=== PATIENT | female | born 1950 | race Caucasian/White ===

== ENCOUNTER → 2018-05-05 | Outpatient (CLI) | payer MEDICARE, BC ==
--- NOTE | 2018-05-05 14:02 | US ---
EXAMINATION TYPE: US venous doppler duplex LE LT DATE OF EXAM: 05/05/2018 1:47 PM COMPARISON: NONE CLINICAL HISTORY: M79.662,R22.42 PAIN AND SWELLING IN LT LOWER LIMB. SIDE PERFORMED: Left TECHNIQUE: The lower extremity deep venous system is examined utilizing real time linear array sonog shree with graded compression, doppler sonography and color-flow sonography. VESSELS IMAGED: External Iliac Vein (EIV) Common Femoral Vein Deep Femoral Vein Greater Saphenous Vein * Femoral Vein Popliteal Vein Proximal Calf Veins (* superficial vessels) Left Leg: Negative for DVT Complex fluid collection originating behind knee and extending into mid calf, measures 9.7 x 1.8 cm. IMPRESSION: 1. No evidence for DVT. 2. Complex Mcdowell's cyst.
== END | disposition home or self-care (01) ==
LOC: RADUSWWP 13:23
PROVIDERS: ATTEND Family Medicine
DX: M79.662 Pain in left lower leg (principal); R22.42 Localized swelling, mass and lump, left lower limb

== ENCOUNTER 2021-10-14 02:32 | Inpatient (IN) | payer MEDICARE, BC ==
[2021-10-14] MEDS ORDERED: ENALAPRILAT 1.25 MG/ML 1 ML VIAL IVP STA ×2 (02:47→04:12)
[2021-10-14] MEDS ORDERED: IPRATROPIUM-ALBUTEROL 3 ML NEB INHALATION STA (02:47)
--- NOTE | 2021-10-14 02:57 | ED ---
SOB HPI - General Chief Complaint: Shortness of Breath Stated Complaint: SOB Time Seen by Provider: 10/14/21 02:47 Source: patient, EMS, RN notes reviewed, old records reviewed Mode of arrival: EMS Limitations: no limitations - History of Present Illness Initial Comments: This is a 71-year-old female who does have history of heart disease history of prior heart attack coming in for severe shortness of breath that woke her from sleep severe sudden onset of shortness of breath and asthma. No travel history or sick contacts no fevers no chest pain. Just severe shortness of breath patient can take a deep breath MD Complaint: shortness of breath, "asthma attack", anxiety -: minutes(s) Severity: severe Severity scale (1-10): 9 Consistency: constant Worsens With: nothing Known History Of: asthma Associated Symptoms: cough, sputum production Treatments Prior to Arrival: oxygen Review of Systems ROS Statement: Those systems with pertinent positive or pertinent negative responses have been documented in the HPI. ROS Other: All systems not noted in ROS Statement are negative. Past Medical History History of Any Multi-Drug Resistant Organisms: None Reported Past Psychological History: No Psychological Hx Reported Smoking Status: Never smoker Past Alcohol Use History: None Reported Past Drug Use History: None Reported General Exam Limitations: no limitations General appearance: anxious, in distress Head exam: Present: atraumatic, normocephalic, normal inspection Eye exam: Present: normal appearance, PERRL, EOMI. Absent: scleral icterus, conjunctival injection, periorbital swelling ENT exam: Present: normal exam, mucous membranes moist Neck exam: Present: normal inspection. Absent: tenderness, meningismus, lymphadenopathy Respiratory exam: Present: respiratory distress, wheezes, rhonchi, accessory muscle use, decreased breath sounds, prolonged expiratory. Absent: rales, stridor Cardiovascular Exam: Present: regular rate, normal rhythm, normal heart sounds. Absent: systolic murmur, diastolic murmur, rubs, gallop, clicks GI/Abdominal exam: Present: soft, normal bowel sounds. Absent: distended, tenderness, guarding, rebound, rigid Extremities exam: Present: normal inspection, full ROM, normal capillary refill. Absent: tenderness, pedal edema, joint swelling, calf tenderness Back exam: Present: normal inspection Neurological exam: Present: alert, oriented X3, CN II-XII intact Psychiatric exam: Present: normal affect, normal mood Skin exam: Present: warm, dry, intact, normal color. Absent: rash Course Vital Signs 10/14/21 10/14/21 10/14/21 02:36 03:02 03:08 Temperature 98.4 F Pulse Rate 95 89 87 Respiratory 16 Rate Blood Pressure 195/116 187/78 O2 Sat by Pulse 97 99 Oximetry 10/14/21 10/14/21 03:10 03:30 Temperature Pulse Rate 84 84 Respiratory Rate Blood Pressure 175/80 O2 Sat by Pulse Oximetry - Reevaluation(s) Reevaluation #1: 10/14/21 04:13 Medical record is reviewed Reevaluation #2: 10/14/21 04:13 Patient has no real improvement with. Treatments, continues to shortness of breath here in the ER Reevaluation #3: 10/14/21 04:13 Patient informed of results and questions answered - Consultations Consultation #1: Spoke with Dr. Recinos who agrees to admit this patient Medical Decision Making - Medical Decision Making 71 female with acute sudden onset of hypertensive emergency CHF flash pulmonary edema. This is new onset CHF. Patient will be admitted for cardiology evaluation management diuresis and monitoring of breathing, supportive care - Lab Data Result diagrams: 10/14/21 02:50 10/14/21 02:50 Lab Results 10/14/21 10/14/21 10/14/21 Range/Units 02:50 02:50 02:50 WBC 6.2 (3.8-10.6) k/uL RBC 3.86 (3.80-5.40) m/uL Hgb 12.0 (11.4-16.0) gm/dL Hct 34.7 (34.0-46.0) % MCV 90.0 (80.0-100.0) fL MCH 31.1 (25.0-35.0) pg MCHC 34.6 (31.0-37.0) g/dL RDW 13.7 (11.5-15.5) % Plt Count 289 (150-450) k/uL MPV 7.4 Neutrophils % 78 % Lymphocytes % 12 % Monocytes % 6 % Eosinophils % 3 % Basophils % 1 % Neutrophils # 4.8 (1.3-7.7) k/uL Lymphocytes # 0.7 L (1.0-4.8) k/uL Monocytes # 0.4 (0-1.0) k/uL Eosinophils # 0.2 (0-0.7) k/uL Basophils # 0.0 (0-0.2) k/uL PT 9.8 (9.0-12.0) sec INR 0.9 (<1.2) APTT 24.7 (22.0-30.0) sec Sodium 130 L (137-145) mmol/L Potassium 4.0 (3.5-5.1) mmol/L Chloride 97 L (98-107) mmol/L Carbon Dioxide 28 (22-30) mmol/L Anion Gap 5 mmol/L BUN 16 (7-17) mg/dL Creatinine 0.70 (0.52-1.04) mg/dL Est GFR (CKD-EPI)AfAm >90 (>60 ml/min/1.73 sqM) Est GFR (CKD-EPI)NonAf 89 (>60 ml/min/1.73 sqM) Glucose 201 H (74-99) mg/dL Plasma Lactic Acid Kvng (0.7-2.0) mmol/L Calcium 9.2 (8.4-10.2) mg/dL Magnesium 1.9 (1.6-2.3) mg/dL Total Bilirubin 0.5 (0.2-1.3) mg/dL AST 39 H (14-36) U/L ALT 23 (4-34) U/L Alkaline Phosphatase 78 (38-126) U/L Troponin I (0.000-0.034) ng/mL NT-Pro-B Natriuret Pep pg/mL Total Protein 7.0 (6.3-8.2) g/dL Albumin 4.1 (3.5-5.0) g/dL 10/14/21 10/14/21 10/14/21 Range/Units 02:50 02:50 03:03 WBC (3.8-10.6) k/uL RBC (3.80-5.40) m/uL Hgb (11.4-16.0) gm/dL Hct (34.0-46.0) % MCV (80.0-100.0) fL MCH (25.0-35.0) pg MCHC (31.0-37.0) g/dL RDW (11.5-15.5) % Plt Count (150-450) k/uL MPV Neutrophils % % Lymphocytes % % Monocytes % % Eosinophils % % Basophils % % Neutrophils # (1.3-7.7) k/uL Lymphocytes # (1.0-4.8) k/uL Monocytes # (0-1.0) k/uL Eosinophils # (0-0.7) k/uL Basophils # (0-0.2) k/uL PT (9.0-12.0) sec INR (<1.2) APTT (22.0-30.0) sec Sodium (137-145) mmol/L Potassium (3.5-5.1) mmol/L Chloride (98-107) mmol/L Carbon Dioxide (22-30) mmol/L Anion Gap mmol/L BUN (7-17) mg/dL Creatinine (0.52-1.04) mg/dL Est GFR (CKD-EPI)AfAm (>60 ml/min/1.73 sqM) Est GFR (CKD-EPI)NonAf (>60 ml/min/1.73 sqM) Glucose (74-99) mg/dL Plasma Lactic Acid Kvng 0.7 (0.7-2.0) mmol/L Calcium (8.4-10.2) mg/dL Magnesium (1.6-2.3) mg/dL Total Bilirubin (0.2-1.3) mg/dL AST (14-36) U/L ALT (4-34) U/L Alkaline Phosphatase (38-126) U/L Troponin I <0.012 (0.000-0.034) ng/mL NT-Pro-B Natriuret Pep 436 pg/mL Total Protein (6.3-8.2) g/dL Albumin (3.5-5.0) g/dL - EKG Data -: EKG Interpreted by Me (EKG is sinus rhythm 85 NM 197 QRS 94 QTC 399) - Radiology Data Radiology results: report reviewed (Chest x-ray positive for significant pulmonary edema), image reviewed Critical Care Time Critical Care Time: Yes Total Critical Care Time: 31 Disposition Clinical Impression: Congestive heart failure, Acute pulmonary edema, Asthma with acute exacerbation, Hypertensive emergency Disposition: ADMITTED IP TO THIS HOSP Condition: Serious Is patient prescribed a controlled substance at d/c from ED?: No Referrals: Cesia Recinos DO [Primary Care Provider] - 1-2 days Time of Disposition: 04:00
[2021-10-14 03:04] LABS: Basophils % (A) 1 %; Eosinophils # (A) 0.2 k/uL (0-0.7); Eosinophils % (A) 3 %; HCT 34.7 % (34.0-46.0); Lymphocytes # (A) 0.7 k/uL (1.0-4.8); Lymphocytes % (A) 12 %; MCH 31.1 pg (25.0-35.0); MCHC 34.6 g/dL (31.0-37.0); Mean Platelet Volume 7.4; Monocytes # (A) 0.4 k/uL (0-1.0); Monocytes % (A) 6 %; Neutrophils # (A) 4.8 k/uL (1.3-7.7); Neutrophils % (A) 78 %; Platelet Count 289 k/uL (150-450); RBC 3.86 m/uL (3.80-5.40); RDW 13.7 % (11.5-15.5); WBC 6.2 k/uL (3.8-10.6)
[2021-10-14 03:14] LABS: INR 0.9 (<1.2); Partial Thromboplastin Time 24.7 sec (22.0-30.0); Prothrombin Time 9.8 sec (9.0-12.0)
[2021-10-14 03:18] LABS: ALT 23 U/L (4-34); AST 39 U/L (14-36); African American GFR (CKD) >90 (>60 ml/min/1.73 sqM); Albumin 4.1 g/dL (3.5-5.0); Alkaline Phosphatase 78 U/L (38-126); Anion Gap 5 mmol/L; Blood Urea Nitrogen 16 mg/dL (7-17); Calcium 9.2 mg/dL (8.4-10.2); Carbon Dioxide 28 mmol/L (22-30); Chloride 97 mmol/L (98-107); Glucose 201 mg/dL (74-99); Magnesium 1.9 mg/dL (1.6-2.3); Non-African American GFR(CKD) 89 (>60 ml/min/1.73 sqM); Sodium 130 mmol/L (137-145); Total Bilirubin 0.5 mg/dL (0.2-1.3)
--- NOTE | 2021-10-14 03:40 | XR ---
EXAM: XR Chest, 1 View CLINICAL HISTORY: ITS.REASON XR Reason: sob TECHNIQUE: Frontal view of the chest. COMPARISON: No relevant prior studies available. FINDINGS: Lungs: Mild interstitial opacities in both lungs with questionable Kyle B-lines. Pleural space: Unremarkable. No pneumothorax. Heart: Unremarkable. No cardiomegaly. Mediastinum: Unremarkable. Bones/joints: Unremarkable. IMPRESSION: Mild pulmonary edema.
[2021-10-14] MEDS ORDERED: FUROSEMIDE 10 MG/ML 10 ML VIAL IV STA (03:45)
[2021-10-14] MEDS ORDERED: ALBUTEROL NEBULIZED 2.5 MG/3 ML INHALATION PRN (04:09)
[2021-10-14] MEDS ORDERED: NITROGLYCERIN OINT 1 INCH/GM PACKET TOPICAL STA (04:12)
[2021-10-14] MEDS: FUROSEMIDE 10 MG/ML 4 ML VIAL IV SCH ×2 (05:42→16:53)
[2021-10-14 07:49] LABS: Glucose,Whole Blood 253 mg/dL (70-110)
[2021-10-14] MEDS: LEVOTHYROXINE 100 MCG TAB PO SCH (09:10)
[2021-10-14] MEDS: carvediloL 12.5 MG TAB PO SCH ×2 (09:10→16:53)
[2021-10-14 09:19] LABS: Glucose,Whole Blood 274 mg/dL (70-110)
--- NOTE | 2021-10-14 10:43 | CA ---
Transthoracic Echo Report Name: Elle Huertas Age: 71 Gender: F : 1950 Exam Date: 10/14/2021 09:17 Exam Location: [facility] Ht (in): 64 Wt (lb): 200 Ordering Physician: Pastor Saleh DO Attending/Referring Phys: [id number], Delfino Boiler Assistant Operator Carol Simmons, BEBETO Procedure CPT: Indications: Heart failure Cardiac Hx: Technical Quality: Fair Contrast 1: Total Dose (mL): Contrast 2: Total Dose (mL): MEASUREMENTS (Male / Female) Normal Values 2D ECHO LV Diastolic Diameter PLAX 3.7 cm 4.2 - 5.9 / 3.9 - 5.3 cm LV Systolic Diameter PLAX 2.8 cm IVS Diastolic Thickness 1.1 cm 0.6 - 1.0 / 0.6 - 0.9 cm LVPW Diastolic Thickness 1.2 cm 0.6 - 1.0 / 0.6 - 0.9 cm LV Relative Wall Thickness 0.6 RV Internal Dim ED PLAX 2.7 cm M-MODE Aortic Root Diameter MM 2.1 cm LA Systolic Diameter MM 3.0 cm LA Ao Ratio MM 1.4 MV E Point Septal Separation 0.6 cm AV Cusp Separation MM 0.9 cm DOPPLER AV Peak Velocity 199.1 cm/s AV Peak Gradient 15.9 mmHg AV Mean Velocity 137.7 cm/s AV Mean Gradient 8.9 mmHg AV Velocity Time Integral 41.6 cm LVOT Peak Velocity 116.7 cm/s LVOT Peak Gradient 5.4 mmHg MV Area PHT 4.8 cm??? Mitral E Point Velocity 74.5 cm/s Mitral A Point Velocity 91.2 cm/s Mitral E to A Ratio 0.8 MV Deceleration Time 157.0 ms MV E' Velocity 5.4 cm/s Mitral E to MV E' Ratio 13.8 FINDINGS Left Ventricle Normal Left ventricular size, mild wall thickness, systolic function.left ventricular ejection fraction is estimated at 50-55 %. Right Ventricle Normal right ventricular size and function. Right Atrium Normal right atrial size. Left Atrium Normal left atrial size. Mitral Valve Structurally normal mitral valve. Mild mitral regurgitation. Aortic Valve Aortic valve not well visualized. Mild aortic stenosis with a peak gradient of 16 mmHg and a mean gradient of 9 mmHg. Tricuspid Valve Structurally normal tricuspid valve. Mild tricuspid regurgitation. Pulmonic Valve Pulmonic valve not well visualized. Pericardium Normal pericardium. Aorta Normal size aortic root and proximal ascending aorta. CONCLUSIONS Normal left ventricular dimension and systolic function Mild aortic stenosis identified Previewed by: Dr. Deonte Dumont MD (Electronically Signed) Final Date: 14 October 2021 10:41
--- NOTE | 2021-10-14 11:25 | P.CRDCN ---
History of Present Illness History of present illness: HISTORY OF PRESENTING ILLNESS Patient is a pleasant 71-year-old female with history of questionable LA back in 2001 not requiring any stenting however preserved ejection fraction per patient, diabetes mellitus type 2, hypertension, hyperlipidemia. She states she had been in her normal state of health and no recent changes to her medications. Last night she developed sudden onset of shortness breath and therefore presented to ER and was noted to be hypertensive with a pressures 190s over 110s. She was given nitroglycerin, enalapril and Lasix with improvement in her blood pressure and improvement in her symptoms. She denies any other similar episodes. Denies any chest pain or pressure. Blood work shows white blood cell count 6.2, hemoglobin 12.0, sodium 1:30, creatinine 0.7, glucose 201, proBNP 436, troponins negative 3, pro-calcitonin 0.06. EKG shows sinus rhythm with minimal ST depressions in the lateral leads. Echocardiogram shows EF 50-55% with mild aortic stenosis and no other significant valvular disease. Chest x-ray concerning for vascular congestion. She does not smoke, no alcohol, no illicit drugs. No history of COPD. No recent fevers or chills. REVIEW OF SYSTEMS At the time of my exam: CONSTITUTIONAL: Denies fever or chills. CARDIOVASCULAR: Denies chest pain, +shortness of breath, no orthopnea, PND or palpitations. RESPIRATORY: Denies cough. GASTROINTESTINAL: Denies abdominal pain, diarrhea, constipation, nausea or vomiting. MUSCULOSKELETAL: Denies myalgias. NEUROLOGIC: Denies numbness, tingling or weakness. ENDOCRINE: Denies fatigue, weight change, polydipsia or polyurina. GENITOURINARY: Denies burning, hematuria or urgency with micturation. HEMATOLOGIC: Denies history of anemia or bleeding. PHYSICAL EXAMINATION Vital signs reviewed. CONSTITUTIONAL: No apparent distress. HEENT: Head is normocephalic. Pupils are equal, round. Sclerae anicteric. Mucous membranes of the mouth are moist. No JVD. No carotid bruit. CHEST EXAMINATION: +Crackles HEART EXAMINATION: Regular rate and rhythm. S1, S2 heard. +2/6 systolic murmur, no gallops or rub. ABDOMEN: Soft, nontender. Positive bowel sounds. EXTREMITIES: 2+ peripheral pulses, no lower extremity edema and no calf tenderness. NEUROLOGIC EXAMINATION: Patient is awake, alert and oriented x3. ASSESSMENT 1. Acute on chronic diastolic heart failure 2. Hypertension, extremely elevated on presentation however states normally fairly well controlled 3. Mild aortic stenosis 4. History of LA, apparently nonobstructive disease by prior heart catheterization not requiring stenting 2001 5. Diabetes mellitus type 2 PLAN Patient with acute onset of shortness breath as well as hypertension improved with nitro, Lasix, enalapril. Still does have mild crackles and continue diuresis. Left ventricular function preserved. Continue with blood pressure regimen. Possibility of flash pulmonary edema from renal artery stenosis however this is her first episode and we will continue to monitor. Rule out underlying ischemia as cause of her exacerbation with number of risk factors. Check Lexiscan stress test tomorrow. Hopefully discharge home tomorrow if blood pressure controlled and Lexiscan stress test without any inducible ischemia. 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 Last Myocardial Infarction Date:: 2001 History of Any Multi-Drug Resistant Organisms: None Reported Past Surgical History: Appendectomy, Ear Surgery, Heart Catheterization, Hysterectomy, Joint Replacement Additional Past Surgical History / Comment(s): Total L knee arthroplasty, R ear surgery d/t deformed bones as a child, D&Cs, hysterectomy d/t fibroid tumors, colonoscopy, bilateral cataract removal/lens implants. Past Anesthesia/Blood Transfusion Reactions: No Reported Reaction Smoking Status: Never smoker - Past Family History Father Family Medical History: Cancer Additional Family Medical History / Comment(s): Pt unsure of type of cancer. Mother Family Medical History: Congestive Heart Failure (CHF), Coronary Artery Disease (CAD), Renal Disease Additional Family Medical History / Comment(s): CABG, dialysis. Medications and Allergies Home Medications Medication Instructions Recorded Confirmed Type Ascorbic Acid [Vitamin C] 500 mg PO DAILY 10/14/21 10/14/21 History Aspirin 325 mg PO HS 10/14/21 10/14/21 History Atorvastatin Calcium [Lipitor] 80 mg PO MO 10/14/21 10/14/21 History Atorvastatin [Lipitor] 40 mg PO [id number] 10/14/21 10/14/21 History Budesonide-Formot 160-4.5 Mcg 1 puff INHALATION RT-BID 10/14/21 10/14/21 History [Symbicort 160-4.5 Mcg Inhaler] Calcium Carb/Mag Ox/Zinc Sulf 1 tab PO DAILY 10/14/21 10/14/21 History [Uau-Wsi-Rbjs 334-134-5 mg Tab] Cholecalciferol (Vitamin D3) 125 mcg PO DAILY 10/14/21 10/14/21 History [Vitamin D3 (125 MCG = 5,000 IU)] Glucosamine/Chondr Doe A Sod [Osteo 1 tab PO BID 10/14/21 10/14/21 History Bi-Flex Caplet] INSULIN LISPRO (For Pump) [humaLOG 0.01 units SQ-PUMP CONTINUOUS 10/14/21 10/14/21 History (For Pump)] Levothyroxine Sodium [Synthroid] 100 mcg PO DAILY 10/14/21 10/14/21 History Montelukast [Singulair] 10 mg PO W/LUNCH 10/14/21 10/14/21 History Multivitamins, Thera [Multivitamin 1 tab PO DAILY 10/14/21 10/14/21 History (formulary)] Omeprazole [PriLOSEC] 20 mg PO AC-BRKFST 10/14/21 10/14/21 History Zinc 50 mg PO DAILY 10/14/21 10/14/21 History carvediloL [Coreg] 25 mg PO BID 10/14/21 10/14/21 History hydroCHLOROthiazide 12.5 mg PO DAILY 10/14/21 10/14/21 History lisinopriL [Prinivil] 20 mg PO BID 10/14/21 10/14/21 History Allergies Allergy/AdvReac Type Severity Reaction Status Date / Time No Known Allergies Allergy Verified 10/14/21 06:42 Physical Exam Vitals: Vital Signs Temp Pulse Resp BP Pulse Ox 10/14/21 10:57 90 16 109/53 95 10/14/21 07:52 82 16 10/14/21 07:39 84 16 10/14/21 07:35 85 16 110/89 10/14/21 05:58 79 170/72 97 10/14/21 05:30 79 176/72 97 10/14/21 05:00 84 180/84 98 10/14/21 03:30 84 175/80 10/14/21 03:10 84 10/14/21 03:08 87 187/78 99 10/14/21 03:02 89 10/14/21 02:36 98.4 F 95 16 195/116 97 Intake and Output 10/13/21 10/14/21 10/14/21 22:59 06:59 14:59 Other: Weight 90.718 kg 90.718 kg Results 10/14/21 02:50 10/14/21 02:50 Cardiac Enzymes 10/14/21 10/14/21 10/14/21 Range/Units 02:50 02:50 05:45 AST 39 H (14-36) U/L Troponin I <0.012 <0.012 (0.000-0.034) ng/mL 10/14/21 Range/Units 07:47 AST (14-36) U/L Troponin I <0.012 (0.000-0.034) ng/mL Coagulation 10/14/21 Range/Units 02:50 PT 9.8 (9.0-12.0) sec APTT 24.7 (22.0-30.0) sec CBC 10/14/21 Range/Units 02:50 WBC 6.2 (3.8-10.6) k/uL RBC 3.86 (3.80-5.40) m/uL Hgb 12.0 (11.4-16.0) gm/dL Hct 34.7 (34.0-46.0) % Plt Count 289 (150-450) k/uL Comprehensive Metabolic Panel 10/14/21 Range/Units 02:50 Sodium 130 L (137-145) mmol/L Potassium 4.0 (3.5-5.1) mmol/L Chloride 97 L (98-107) mmol/L Carbon Dioxide 28 (22-30) mmol/L BUN 16 (7-17) mg/dL Creatinine 0.70 (0.52-1.04) mg/dL Glucose 201 H (74-99) mg/dL Calcium 9.2 (8.4-10.2) mg/dL AST 39 H (14-36) U/L ALT 23 (4-34) U/L Alkaline Phosphatase 78 (38-126) U/L Total Protein 7.0 (6.3-8.2) g/dL Albumin 4.1 (3.5-5.0) g/dL Current Medications Generic Name Dose Route Start Last Admin Trade Name Freq PRN Reason Stop Dose Admin Albuterol Sulfate 2.5 mg 10/14/21 04:09 10/14/21 07:39 Albuterol Nebulized 2.5 Mg/3 Ml INHALATION 2.5 mg RT-QID PRN Administration Shortness Of Breath Or Wheezing Aminophylline 100 mg 10/14/21 11:17 Aminophylline 500 Mg/20 Ml Vial IV 10/14/21 15:17 ONCE PRN Patient Response Aspirin 325 mg 10/14/21 21:00 Aspirin 325 Mg Tab PO HS MAC Atorvastatin Calcium 40 mg 10/14/21 21:00 Atorvastatin 40 Mg Tab PO HS MAC Budesonide/Formoterol Fumarate 1 puff 10/14/21 20:00 Symbicort 160-4.5 Mcg Inhaler INHALATION RT-BID MAC Caffeine Citrate 60 mg 10/15/21 06:00 Caffeine Citrate 60 Mg/3 Ml Vial IV 10/15/21 15:00 ONCE PRN Patient Response Carvedilol 25 mg 10/14/21 09:00 10/14/21 09:10 Carvedilol 12.5 Mg Tab PO 25 mg AC-BID MAC Administration Furosemide 40 mg 10/14/21 04:15 10/14/21 05:42 Furosemide 10 Mg/Ml 4 Ml Vial IV Not Given Q12H MAC Levothyroxine Sodium 100 mcg 10/14/21 09:00 10/14/21 09:10 Levothyroxine 100 Mcg Tab PO 100 mcg DAILY@0630 MAC Administration Regadenoson 0.4 mg 10/14/21 11:17 Regadenoson 0.4 Mg/5 Ml Syringe IV 10/14/21 15:17 ONCE PRN Per Protocol Intake and Output 10/13/21 10/14/21 10/14/21 22:59 06:59 14:59 Other: Weight 90.718 kg 90.718 kg Patient Weight 10/15/21 06:59 Weight 90.718 kg 10/14/21 02:50 10/14/21 02:50
[2021-10-14 12:14] LABS: Glucose,Whole Blood 347 mg/dL (70-110)
[2021-10-14] MEDS ORDERED: INSULIN ASPART (NovoLOG) 100 UNIT/ML VIAL SQ PRN (16:13)
[2021-10-14] MEDS ORDERED: INSULIN PUMP BASAL RATES 1 EACH MISC MISCELLANE PRN (16:36)
[2021-10-14] MEDS: INSPUCOR MISCELLANE PRN ×3 (17:02→23:50)
[2021-10-14 17:03] LABS: Glucose,Whole Blood 341 mg/dL (70-110)
[2021-10-14] MEDS: SYMBICORT 160-4.5 MCG INHALER INHALATION SCH (18:49)
[2021-10-14 19:56] LABS: Glucose,Whole Blood 400 mg/dL (70-110)
[2021-10-14] MEDS ORDERED: ASPIRIN 325 MG TAB PO SCH (21:00)
[2021-10-14] MEDS ORDERED: ATORVASTATIN 40 MG TAB PO SCH (21:00)
[2021-10-15 02:32] LABS: Glucose,Whole Blood 274 mg/dL (70-110)
[2021-10-15] MEDS: FUROSEMIDE 10 MG/ML 4 ML VIAL IV SCH (04:45)
[2021-10-15] MEDS: LEVOTHYROXINE 100 MCG TAB PO SCH (05:35)
[2021-10-15] MEDS ORDERED: CAFFEINE CITRATE 60 MG/3 ML VIAL IV PRN (06:00)
[2021-10-15 06:07] LABS: Glucose,Whole Blood 246 mg/dL (70-110)
[2021-10-15] MEDS: carvediloL 12.5 MG TAB PO SCH (06:43)
[2021-10-15] MEDS ORDERED: REGADENOSON 0.4 MG/5 ML SYRINGE IV PRN (07:00)
[2021-10-15] MEDS ORDERED: AMINOPHYLLINE 500 MG/20 ML VIAL IV PRN (07:00)
[2021-10-15] MEDS: SYMBICORT 160-4.5 MCG INHALER INHALATION SCH (07:28)
[2021-10-15] MEDS ORDERED: REGADENOSON 0.4 MG/5 ML SYRINGE IV ONE (08:00)
--- NOTE | 2021-10-15 09:22 | P.HPIM ---
History of Present Illness H&P Date: 10/14/21 Chief Complaint: shortness of breath Elle Huertas is a 71 yo F with PMH of HTN, HLD, T2DM who presented to the ED complaining of acute onset shortness of breath. She states she has been in her usual state of health until yesterday when she was feeling a bit more fatigued and malaised. She then woke up in the night feeling suddenly dyspneic so came to the ED. On presentation BP 190/110, pt given IV enalapril, nitro and lasix with siginificant improvement in her BP and symptoms. She denies any previous history of same. She denies recent illness or change in her diet. No chest pain or chest pressure. Initial laboratory studies with WBC 6.2, hemoglobin 12.0, sodium 130, creatinine 0.7, glucose 201, proBNP 436, troponins negative 3, pro-calcitonin 0.06. EKG shows sinus rhythm with minimal ST depressions in the lateral leads. Echocardiogram shows EF 50-55% with mild aortic stenosis and no other significant valvular disease. Chest x-ray concerning for vascular congestion. She does not smoke, no alcohol, no illicit drugs. No history of COPD. Review of Systems All systems: negative Constitutional: Denies chills, Denies fever Eyes: denies blurred vision, denies pain Ears, nose, mouth and throat: Denies headache, Denies sore throat Cardiovascular: Reports dyspnea on exertion, Reports shortness of breath, Denies chest pain Respiratory: Reports dyspnea, Denies cough Gastrointestinal: Denies abdominal pain, Denies diarrhea, Denies nausea, Denies vomiting Genitourinary: Denies dysuria, Denies hematuria Musculoskeletal: Denies myalgias Integumentary: Denies pruritus, Denies rash Neurological: Denies numbness, Denies weakness Psychiatric: Denies anxiety, Denies depression Endocrine: Denies fatigue, Denies weight change Past Medical History Past Medical History: Asthma, Coronary Artery Disease (CAD), Diabetes Mellitus, Eye Disorder, GERD/Reflux, Hyperlipidemia, Hypertension, Myocardial Infarction ([place]), Osteoarthritis (OA), Thyroid Disorder Additional Past Medical History / Comment(s): IDDM type II/insulin pump, "minor blood vessel breakage in eyes", osteopenia, hypothyroid, arthritis low back and cervical, cervical pain quite often. Last Myocardial Infarction Date:: 2001 History of Any Multi-Drug Resistant Organisms: None Reported Past Surgical History: Appendectomy, Ear Surgery, Heart Catheterization, Hysterectomy, Joint Replacement Additional Past Surgical History / Comment(s): Total L knee arthroplasty, R ear surgery d/t deformed bones as a child, D&Cs, hysterectomy d/t fibroid tumors, colonoscopy, bilateral cataract removal/lens implants. Past Anesthesia/Blood Transfusion Reactions: No Reported Reaction Smoking Status: Never smoker - Past Family History Father Family Medical History: Cancer Additional Family Medical History / Comment(s): Pt unsure of type of cancer. Mother Family Medical History: Congestive Heart Failure (CHF), Coronary Artery Disease (CAD), Renal Disease Additional Family Medical History / Comment(s): CABG, dialysis. Medications and Allergies Home Medications Medication Instructions Recorded Confirmed Type Ascorbic Acid [Vitamin C] 500 mg PO DAILY 10/14/21 10/14/21 History Aspirin 325 mg PO HS 10/14/21 10/14/21 History Atorvastatin Calcium [Lipitor] 80 mg PO MO 10/14/21 10/14/21 History Atorvastatin [Lipitor] 40 mg PO SUTUWETHFRSA 10/14/21 10/14/21 History Budesonide-Formot 160-4.5 Mcg 1 puff INHALATION RT-BID 10/14/21 10/14/21 History [Symbicort 160-4.5 Mcg Inhaler] Calcium Carb/Mag Ox/Zinc Sulf 1 tab PO DAILY 10/14/21 10/14/21 History [Ymy-Fdz-Hhzy 334-134-5 mg Tab] Cholecalciferol (Vitamin D3) 125 mcg PO DAILY 10/14/21 10/14/21 History [Vitamin D3 (125 MCG = 5,000 IU)] Glucosamine/Chondr Doe A Sod [Osteo 1 tab PO BID 10/14/21 10/14/21 History Bi-Flex Caplet] INSULIN LISPRO (For Pump) [humaLOG 0.01 units SQ-PUMP CONTINUOUS 10/14/21 10/14/21 History (For Pump)] Levothyroxine Sodium [Synthroid] 100 mcg PO DAILY 10/14/21 10/14/21 History Montelukast [Singulair] 10 mg PO W/LUNCH 10/14/21 10/14/21 History Multivitamins, Thera [Multivitamin 1 tab PO DAILY 10/14/21 10/14/21 History (formulary)] Omeprazole [PriLOSEC] 20 mg PO AC-BRKFST 10/14/21 10/14/21 History Zinc 50 mg PO DAILY 10/14/21 10/14/21 History carvediloL [Coreg] 25 mg PO BID 10/14/21 10/14/21 History hydroCHLOROthiazide 12.5 mg PO DAILY 10/14/21 10/14/21 History lisinopriL [Prinivil] 20 mg PO BID 10/14/21 10/14/21 History Allergies Allergy/AdvReac Type Severity Reaction Status Date / Time No Known Allergies Allergy Verified 10/14/21 06:42 Physical Exam Vitals: Vital Signs Temp Pulse Pulse Resp BP BP Pulse Ox 10/15/21 04:00 97.9 F 85 16 137/70 96 10/15/21 01:24 73 16 10/15/21 00:00 97.6 F 16 131/66 94 L 10/14/21 20:00 97.6 F 86 16 136/77 96 10/14/21 15:16 97.8 F 79 18 144/68 97 10/14/21 13:52 78 16 140/59 95 10/14/21 12:18 87 16 138/65 95 10/14/21 10:57 90 16 109/53 95 Intake and Output 10/14/21 10/15/21 10/15/21 22:59 06:59 14:59 Intake Total 118 160 Output Total 350 Balance -232 160 Intake: Oral 118 160 Output: Urine 350 Other: Voiding Method Toilet Toilet # Voids 1 2 Weight 87.6 kg General: well developed elderly female in NAD HEENT: normocephalic, atraumatic, mucus membranes moist Neck: supple. JVD present CV: RRR, no murmur. No edema Lungs: Normal effort, clear throughout Abd: soft, nontender, non distended Neuro: alert and oriented x3, no focal defect Skin: warm and dry Results CBC & Chem 7: 10/14/21 02:50 10/14/21 02:50 Labs: Abnormal Lab Results - Last 24 Hours (Table) 10/14/21 10/14/21 10/14/21 Range/Units 09:16 12:14 16:55 POC Glucose (mg/dL) 274 H 347 H 341 H (70-110) mg/dL 10/14/21 10/15/21 10/15/21 Range/Units 19:54 02:30 06:06 POC Glucose (mg/dL) 400 H 274 H 246 H (70-110) mg/dL Thrombosis Risk Factor Assmnt - Choose All That Apply Any of the Below Risk Factors Present?: Yes Each Factor Represents 1 point: Heart failure (<1month), Obesity (BMI >25) Other Risk Factors: Yes Each Risk Factor Represents 2 Points: Age 61-74 years Other congenital or acquired thrombophilia - If yes, enter type in comment: No Thrombosis Risk Factor Assessment Total Risk Factor Score: 4 Thrombosis Risk Factor Assessment Level: Moderate Risk Assessment and Plan Plan: 1. Flash pulmonary edema. Acute diastolic CHF. Start IV lasix, continue with coreg, lipitor, lisinopril. Cardiology consult. stress test pending 2. HTN. BP currently controlled, monitor fluid status 3. T2DM. Continue insulin pump at basal rate. Sliding scale for correction
--- NOTE | 2021-10-15 11:29 | CA ---
Lexiscan Nuclear Stress Test Report Name: Elle Huertas Exam Date: 10/15/2021 08:52 Exam Location: [facility] Stress Ht (in): 64 Wt (lb): 200 BSA: 1.96 Ordering Phys: Michael Higuera DO Referring Phys: OSORIO, Technologist: Moe Hayes Age: 71 Gender: F : 1950 Procedure CPT: Indications: Reflex order-Stress test ICD-10 Codes: Patient History: Medications: Meds past 24 hrs: Pretest Chest Pain: STRESS TEST Lexiscan Protocol Exercise Duration (min:sec): 02:[address] Depressions (mm): Angina Score: Katz Score: Resting HR (bpm): 78 Peak HR (bpm): 98 Resting BP (mmHg): 154 / 65 Peak BP (mmHg): 154 / 65 MPHR: 151 Target HR: 128 % MPHR: 65 METS: 1.0 Total Dose: Peak Dose: Atropine: Double Product: 57394 BP Response: Stress Termination: Stress Symptoms: NO SYMPTOMS Stress Summary: ECG ANALYSIS Resting ECG: Stress ECG: CONCLUSIONS Nondiagnostic electrocardiogram stress testing and response to Lexiscan Please follow up on the Cardiolite portion Dr. Deonte Dumont MD (Electronically Signed) Final Date: 15 October 2021 11:28
--- NOTE | 2021-10-15 11:33 | NM ---
EXAMINATION TYPE: NM stress lexiscan cardiolite DATE OF EXAM: 10/15/2021 COMPARISON: Chest x-ray dated 10/14/2021 HISTORY: Shortness of breath, congestive heart failure TECHNIQUE: After the intravenous administration of 10.2 mCi Tc 99m Sestamibi - Cardiolite resting SP ECT images acquired 45 minutes post injection. The patient received 0.4mg Lexiscan, 25.7 mCi Tc 99m Sestamibi - Stress images obtained [address] injection FINDINGS: Review of stress and rest SPECT images demonstrates no distinct perfusion abnormality. Gated analysi s shows normal wall motion with an estimated left ventricular ejection fraction of 56 %. Gut activ ity is present. IMPRESSION: No scintigraphic evidence for reversible ischemia.
[2021-10-15] MEDS ORDERED: lisinopriL 20 MG TAB PO SCH (11:45)
[2021-10-15 12:02] VITALS: PULSE 84; RESP 18; TEMP 97.8
[2021-10-15 12:18] VITALS: BMI 33.1
[2021-10-15 12:18] LABS: Glucose,Whole Blood 297 mg/dL (70-110)
[2021-10-15] MEDS ORDERED: ACETAMINOPHEN TAB 325 MG TAB PO PRN (13:06)
--- NOTE | 2021-10-15 14:01 | P.PN ---
Subjective Patient is a pleasant 71-year-old female with history of questionable [place] back in 2001 not requiring any stenting however preserved ejection fraction per patient, diabetes mellitus type 2, hypertension, hyperlipidemia. She used to see Dr. Hoyos in 2017. We have been asked to see in consultation for hypertension. She states she had been in her normal state of health and no recent changes to her medications. Night prior to admission she developed sudden onset of shortness breath and therefore presented to ER and was noted to be hypertensive with a pressures 190s over 110s. She was given nitroglycerin, enalapril and Lasix with improvement in her blood pressure and improvement in her symptoms. Denies any chest pain or pressure. Troponins negative 3, EKG revealed sinus rhythm with minimal ST depressions in the lateral leads. Echocardiogram shows EF 50-55% with mild aortic stenosis and no other significant valvular disease. Chest x-ray concerning for vascular congestion. She does not smoke, no alcohol, no illicit drugs. No history of COPD. No recent fevers or chills. 10/15/2021 Patient seen and examined at bedside, no acute distress. She endorses an improvement in her shortness of breath. She denies any further chest pain. She underwent Lexiscan stress test today which revealed no evidence of reversible ischemia. Her blood pressures improved since yesterday. PHYSICAL EXAMINATION Vital signs reviewed. CONSTITUTIONAL: No apparent distress. HEENT: Head is normocephalic.Neck Supple. No JVD. CHEST EXAMINATION: Lungs are clear to auscultation bilaterally HEART EXAMINATION: Regular rate and rhythm. S1, S2 heard. +2/6 systolic murmur, no gallops or rub. ABDOMEN: Soft, nontender. Positive bowel sounds. EXTREMITIES: 2+ peripheral pulses, no lower extremity edema and no calf tenderness. NEUROLOGIC EXAMINATION: Patient is awake, alert and oriented x3. ASSESSMENT Acute on chronic heart failure with preserved ejection fraction Hypertension, extremely elevated on presentation however states normally fairly well controlled Mild aortic stenosis History of [place], apparently nonobstructive disease by prior heart catheterization not requiring stenting 2001 Diabetes mellitus type 2 PLAN Lexiscan stress test was negative for reversible ischemia. Continue home lisinopril Stop IV Lasix transition to PO Lasix 40mg daily Continue aspirin and statin Discontinue home hydrochlorothiazide From cardiology perspective, patient is stable to be discharged home. Follow up outpatient. Nurse practitioner note has been reviewed by physician. Signing provider agrees with the documented findings, assessment, and plan of care. Objective - Vital Signs Vital signs: Vital Signs Temp 97.8 F 10/15/21 12:01 Pulse 84 10/15/21 12:01 Resp 18 10/15/21 12:01 BP 179/78 10/15/21 12:01 Pulse Ox 96 10/15/21 12:01 FiO2 Intake & Output 10/14/21 10/15/21 10/15/21 18:59 06:59 18:59 Intake Total 118 160 Output Total 350 Balance 118 -190 Weight 90.718 kg 87.6 kg 87.6 kg Intake: Oral 118 160 Output: Urine 350 Other: Voiding Method Toilet Toilet Toilet # Voids 2 - Labs CBC & Chem 7: 10/14/21 02:50 10/14/21 02:50 Labs: Abnormal Lab Results - Last 24 Hours (Table) 10/14/21 10/14/21 10/14/21 Range/Units 02:50 16:55 19:54 POC Glucose (mg/dL) 341 H 400 H (70-110) mg/dL Hemoglobin A1c 6.5 H (0.0-6.0) % 10/15/21 10/15/21 10/15/21 Range/Units 02:30 06:06 11:57 POC Glucose (mg/dL) 274 H 246 H 297 H (70-110) mg/dL Hemoglobin A1c (0.0-6.0) %
[2021-10-15 14:23] VITALS: BP 154/82
[2021-10-16] MEDS ORDERED: FUROSEMIDE 40 MG TAB PO SCH (09:00)
== END 2021-10-15 15:45 | disposition home or self-care (01) | DRG 291 ==
LOC: EC 02:32 → 3SCARD 04:09
PROVIDERS: ADMIT Family Medicine; ATTEND Family Medicine
DX: I11.0 Hypertensive heart disease with heart failure (principal); I50.33 Acute on chronic diastolic (congestive) heart failure; I16.1 Hypertensive emergency; J45.901 Unspecified asthma with (acute) exacerbation; I25.10 Atherosclerotic heart disease of native coronary artery without angina pectoris; Z20.822 Contact with and (suspected) exposure to COVID-19; E11.9 Type 2 diabetes mellitus without complications; E78.5 Hyperlipidemia, unspecified; F41.9 Anxiety disorder, unspecified; M85.88 Other specified disorders of bone density and structure, other site; I08.1 Rheumatic disorders of both mitral and tricuspid valves; K21.9 Gastro-esophageal reflux disease without esophagitis; M19.90 Unspecified osteoarthritis, unspecified site; I25.2 Old myocardial infarction; Z79.4 Long term (current) use of insulin; Z79.51 Long term (current) use of inhaled steroids; Z79.82 Long term (current) use of aspirin; Z79.890 Hormone replacement therapy; Z79.899 Other long term (current) drug therapy; Z82.49 Family history of ischemic heart disease and other diseases of the circulatory system; Z90.710 Acquired absence of both cervix and uterus; Z96.41 Presence of insulin pump (external) (internal); Z96.652 Presence of left artificial knee joint; Z98.42 Cataract extraction status, left eye; Z98.41 Cataract extraction status, right eye; E03.9 Hypothyroidism, unspecified; Z96.1 Presence of intraocular lens
CPT/HCPCS: 36415; 71045; 78452; 80053; 83036; 83605; 83735; 83880; 84145; 84484; 85025; 85610; 85730; 87635; 93005; 93017; 93306; 94640; 96374; 96375; 96376; 99291

== ENCOUNTER 2022-07-01 06:54 | Day surgery (SDC) | payer MEDICARE, BC ==
[2022-06-28 15:20] VITALS: BMI 31.5
[2022-07-01] MEDS ORDERED: LACTATED RINGERS 1,000 ML IV SCH (07:09)
[2022-07-01] MEDS ORDERED: LIDOCAINE 1% (10MG/ML) FOR IV START INTRADERMA PRN (07:09)
[2022-07-01 07:26] VITALS: RESP 16; TEMP 97.1
[2022-07-01 07:39] LABS: Glucose,Whole Blood 149 mg/dL (70-110)
[2022-07-01] MEDS ORDERED: LIDOCAINE 2% INJ 20 MG/ML (2 ML VIAL) ONE (07:47)
[2022-07-01] MEDS ORDERED: PROPOFOL 10 MG/ML 20 ML VIAL IV ONE (07:47)
--- NOTE | 2022-07-01 07:52 | P.GSHP ---
History of Present Illness H&P Date: 07/01/22 Chief Complaint: Positive colon guard test Is a 72-year-old female who presents today for colonoscopy. Her last colonoscopy was over 7 years ago. Patient recent positive colon guard test. She denies any significant GI complaints Past Medical History Past Medical History: Asthma, Coronary Artery Disease (CAD), Diabetes Mellitus, Eye Disorder, GERD/Reflux, Hyperlipidemia, Hypertension, Myocardial Infarction ([place]), Osteoarthritis (OA), Thyroid Disorder Additional Past Medical History / Comment(s): positive cologuard,IDDM type II/insulin pump, "minor blood vessel breakage in eyes", osteopenia, hypothyroid, arthritis low back and cervical Last Myocardial Infarction Date:: 2001 History of Any Multi-Drug Resistant Organisms: None Reported Past Surgical History: Appendectomy, Ear Surgery, Heart Catheterization, Hysterectomy, Joint Replacement Additional Past Surgical History / Comment(s): Total L knee arthroplasty, R ear surgery d/t deformed bones as a child, D&Cs, hysterectomy d/t fibroid tumors, colonoscopy, bilateral cataract removal/lens implants,lt knee replaced Past Anesthesia/Blood Transfusion Reactions: No Reported Reaction, Motion Sickness Smoking Status: Never smoker - Past Family History Father Family Medical History: Cancer Additional Family Medical History / Comment(s): Pt unsure of type of cancer. Mother Family Medical History: Congestive Heart Failure (CHF), Coronary Artery Disease (CAD), Renal Disease Additional Family Medical History / Comment(s): CABG, dialysis. Medications and Allergies Home Medications Medication Instructions Recorded Confirmed Type Ascorbic Acid [Vitamin C] 1,000 mg PO DAILY 10/14/21 06/28/22 History Aspirin 81 mg PO HS 10/14/21 06/28/22 History Atorvastatin [Lipitor] 40 mg PO DAILY 10/14/21 06/28/22 History Budesonide-Formot 160-4.5 Mcg 1 puff INHALATION RT-BID 10/14/21 06/28/22 History [Symbicort 160-4.5 Mcg Inhaler] Calcium Carb/Mag Ox/Zinc Sulf 1 tab PO DAILY 10/14/21 06/28/22 History [Ruc-Mlb-Gpva 334-134-5 mg Tab] Cholecalciferol (Vitamin D3) 125 mcg PO DAILY 10/14/21 06/28/22 History [Vitamin D3 (125 MCG = 5,000 IU)] Glucosamine/Chondr Doe A Sod [Osteo 1 tab PO BID 10/14/21 06/28/22 History Bi-Flex Caplet] INSULIN LISPRO (For Pump) [humaLOG 0.01 units SQ-PUMP CONTINUOUS 10/14/21 06/28/22 History (For Pump)] Levothyroxine Sodium [Synthroid] 100 mcg PO QAM 10/14/21 06/28/22 History Montelukast [Singulair] 10 mg PO W/LUNCH 10/14/21 06/28/22 History Multivitamins, Thera [Multivitamin 1 tab PO DAILY 10/14/21 06/28/22 History (formulary)] Omeprazole [PriLOSEC] 20 mg PO AC-BRKFST 10/14/21 06/28/22 History Zinc 50 mg PO DAILY 10/14/21 06/28/22 History carvediloL [Coreg] 25 mg PO BID 10/14/21 06/28/22 History lisinopriL [Prinivil] 20 mg PO BID 10/14/21 06/28/22 History Furosemide [Lasix] 40 mg PO DAILY #60 tab 10/15/21 06/28/22 Rx Raloxifene HCl 60 mg PO DAILY 06/28/22 06/28/22 History Semaglutide [Rybelsus] 3.5 mg PO Q2D 06/28/22 06/28/22 History Semaglutide [Rybelsus] 7 mg PO Q2D 06/28/22 06/28/22 History amLODIPine 10 mg PO QAM 06/28/22 06/28/22 History Allergies Allergy/AdvReac Type Severity Reaction Status Date / Time No Known Allergies Allergy Verified 07/01/22 07:19 Surgical - Exam Vital Signs Temp Pulse Resp BP Pulse Ox 97.1 F L 88 16 135/65 98 07/01/22 07:25 07/01/22 07:25 07/01/22 07:25 07/01/22 07:25 07/01/22 07:25 - General well developed, well nourished - Eyes PERRL - ENT normal pinna - Neck no masses - Respiratory normal expansion - Cardiovascular Rhythm: regular - Abdomen Abdomen: soft, non tender Results - Labs Abnormal Lab Results - Last 24 Hours (Table) 07/01/22 Range/Units 07:36 POC Glucose (mg/dL) 149 H (70-110) mg/dL Assessment and Plan Assessment: Positive colon guard test. We'll perform colonoscopy.
--- NOTE | 2022-07-01 08:03 | P.OP ---
Date of Procedure: 07/01/22 Preoperative Diagnosis: Positive colon guard test Screening colonoscopy Postoperative Diagnosis: Diverticulosis Procedure(s) Performed: Colonoscopy Anesthesia: MAC Surgeon: Anthony Kwok Pathology: none sent Condition: stable Disposition: PACU Description of Procedure: The patient's placed on the endoscopy table in the lateral position. She received IV sedation. Digital rectal exam performed. This revealed no abnormalities. Flexible colonoscope was then placed patient anus and passed throughout the entire colon. The ileocecal valve was visualized. The cecum, ascending and transverse colon appeared normal. In the descending; there is mild diverticular changes. There was no evidence of diverticulitis. Scope was then brought back the rectum and this appeared normal. Scope withdrawn for patient.
[2022-07-01 08:22] VITALS: BP 147/74; PULSE 68
== END 2022-07-01 08:45 | disposition home or self-care (01) ==
LOC: ORWHC2ENDO 06:54
PROVIDERS: ATTEND Surgery
DX: R19.5 Other fecal abnormalities (principal); K57.30 Diverticulosis of large intestine without perforation or abscess without bleeding; J45.909 Unspecified asthma, uncomplicated; I25.10 Atherosclerotic heart disease of native coronary artery without angina pectoris; E11.9 Type 2 diabetes mellitus without complications; K21.9 Gastro-esophageal reflux disease without esophagitis; E78.5 Hyperlipidemia, unspecified; I10 Essential (primary) hypertension; I25.2 Old myocardial infarction; Z79.4 Long term (current) use of insulin; Z90.89 Acquired absence of other organs; Z90.49 Acquired absence of other specified parts of digestive tract; Z95.5 Presence of coronary angioplasty implant and graft; Z79.82 Long term (current) use of aspirin; Z79.899 Other long term (current) drug therapy
CPT/HCPCS: 45378; J2704; J2001